=== PATIENT | female | born 1945 | race Two or more races ===

== ENCOUNTER 2016-12-04 11:29 | Day surgery (SDC) | payer MEDICAID ==
[2016-12-04] MEDS ORDERED: NALOXONE HCL 0.4 MG/ML INJ ONE (13:29)
[2016-12-04] MEDS ORDERED: FLUMAZENIL 0.5 MG/5 ML MDV IVP ONE (13:29)
[2016-12-04] MEDS ORDERED: fentaNYL 100 MCG/2 ML INJ ONE (13:29)
[2016-12-04] MEDS ORDERED: MIDAZOLAM 2 MG/2 ML VIAL ONE (13:30)
[2016-12-04] MEDS ORDERED: TRIAMCINOLONE ACETONIDE 200 MG/5 ML MDV IM ONE (13:47)
[2016-12-04] MEDS ORDERED: IOPAMIDOL (ISOVUE-M 300) 15 ML VIAL IV ONE (13:47)
== END 2016-12-04 15:00 | disposition home or self-care (01) ==
LOC: FIMAGING 11:29
PROVIDERS: ATTEND Neurological Surgery
PROC: 3E0S3BZ Introduction of Anesthetic Agent into Epidural Space, Percutaneous Approach (ICD-10-PCS; principal; 2016-12-04 14:15)
PROC: 3E0S33Z Introduction of Anti-inflammatory into Epidural Space, Percutaneous Approach (ICD-10-PCS; principal; 2016-12-04 14:15)
DX: M54.5 Low back pain (principal); R20.2 Paresthesia of skin; M48.06 Spinal stenosis, lumbar region
CPT/HCPCS: J2250; J2310; J3010; J3301; Q9967